=== PATIENT | female | born 1960 | race Hispanic/Latino ===

== ENCOUNTER → 2017-12-09 | Outpatient (CLI) | payer OTHER ==
[~2017-12-09] MED LIST: ASPI-1114 PO; B12/1TAB3 PO; CYCL10TA7 PO; DICY10CA13 PO; ESOM20CA60 PO; FA/M1TAB32 PO; FISH1CAP20 PO; GLUC100019 PO; PITA2TAB2 PO; SLOMG PO; SUCR1TAB2 PO; TRAM50TA4 PO; UBID100C45 PO
== END | disposition home or self-care (01) ==
LOC: RAH 09:21
PROVIDERS: ATTEND Internal Medicine Gastroenterology
DX: K21.0 Gastro-esophageal reflux disease with esophagitis (principal); K44.9 Diaphragmatic hernia without obstruction or gangrene; I10 Essential (primary) hypertension; E78.5 Hyperlipidemia, unspecified
CPT/HCPCS: 74240

== ENCOUNTER 2018-05-04 23:15 | Emergency (ER) | payer BC, OTHER ==
[2018-05-05] MEDS ORDERED: METOPROLOL TARTRATE 25 MG TAB ONE (00:28)
[2018-05-05 00:32] LABS: BASOPHILS % (AUTO) 0.4 % (0.0-5.0); EOSINOPHILS % (AUTO) 0.4 % (0.0-8.0); HEMATOCRIT 42.3 % (36-48); MEAN CORPUSCULAR HEMOGLOBIN 27.7 pg (27.0-33.0); MEAN CORPUSCULAR HGB CONC 33.6 g/dL (32.0-36.0); MEAN CORPUSCULAR VOLUME 82.4 fL (79-99); MONOCYTES % (AUTO) 9.7 % (3.0-13.0); NEUTROPHILS % (AUTO) 60.5 % (40.0-77.0); NUCLEATED RED BLOOD CELLS 0.1 % (0.0-0.19); PLATELET COUNT (AUTO) 259 K/uL (130-400); RED BLOOD CELL COUNT(AUTO) 5.14 MIL/uL (4.00-5.50); RED CELL DISTRIBUTION WIDTH 13.1 % (11.0-15.5)
[2018-05-05 00:43] LABS: CREATININE 0.7 mg/dL (0.5-1.5); POTASSIUM 3.7 mmol/L (3.5-5.1)
[2018-05-05 00:48] LABS: ALBUMIN 4.4 g/dL (3.5-5.0); BILIRUBIN,TOTAL 0.3 mg/dL (0.2-1.0); TOTAL PROTEIN, SERUM 8.6 g/dL (6.0-8.3)
[2018-05-05 02:26] LABS: CREATININE 0.6 mg/dL (0.5-1.5); POTASSIUM 3.7 mmol/L (3.5-5.1)
[2018-05-05 02:31] LABS: ALBUMIN 3.8 g/dL (3.5-5.0); BILIRUBIN,TOTAL 0.2 mg/dL (0.2-1.0); TOTAL PROTEIN, SERUM 7.3 g/dL (6.0-8.3)
== END 2018-05-05 03:46 | disposition home or self-care (01) ==
LOC: EDH 23:15
DX: I10 Essential (primary) hypertension (principal); R00.2 Palpitations; Z88.2 Allergy status to sulfonamides; Z88.1 Allergy status to other antibiotic agents; Z90.49 Acquired absence of other specified parts of digestive tract; Z90.710 Acquired absence of both cervix and uterus
CPT/HCPCS: 36415; 80053; 82550; 84484; 85025; 93005

== ENCOUNTER 2021-03-18 13:35 | Emergency (ER) | payer BC ==
[~2021-03-18] VITALS: Ht 157.5 cm; Wt 68.0 kg
[~2021-03-18 13:35] MED LIST changes: +CYCL-309 PO; -CYCL10TA7 PO
[2021-03-18] MEDS: CLONIDINE HCL 0.1 MG TABLET PO ONE ×2 (16:17→16:21)
[2021-03-18 16:21] VITALS: BP 159/86
== END 2021-03-18 16:29 | disposition home or self-care (01) ==
LOC: EDH 13:35
DX: U07.1 COVID-19 (principal); J06.9 Acute upper respiratory infection, unspecified; I10 Essential (primary) hypertension; E78.00 Pure hypercholesterolemia, unspecified; Z79.82 Long term (current) use of aspirin; Z79.899 Other long term (current) drug therapy; Z88.2 Allergy status to sulfonamides
CPT/HCPCS: 87635; 87804 ×2; 87880; 99283; C9803

== ENCOUNTER → 2023-07-06 | Outpatient (CLI) | payer BC ==
[~2023-07-06] MED LIST changes: -DICY10CA13 PO; +DICY10CA2 PO
[2023-07-06 12:17] LABS: BASOPHILS # (AUTO) 0.03 K/uL (0.00-0.20); BASOPHILS % (AUTO) 0.6 % (0.0-5.0); EOSINOPHILS # (AUTO) 0.05 K/uL (0.00-0.70); HEMATOCRIT 36.5 % (36-48); IMMATURE GRANULOCYTE ABSOLUTE 0.01 K/uL (0-1); LYMPHOCYTES % (AUTO) 39.8 % (21.0-51.0); MEAN CORPUSCULAR HEMOGLOBIN 27.7 pg (27.0-33.0); MEAN CORPUSCULAR HGB CONC 32.9 g/dL (32.0-36.0); MEAN CORPUSCULAR VOLUME 84.3 fL (79-99); MONOCYTES # (AUTO) 0.6 K/uL (0.1-1.0); MONOCYTES % (AUTO) 11.2 % (3.0-13.0); NEUTROPHILS # (AUTO) 2.3 K/uL (1.8-7.7); NEUTROPHILS % (AUTO) 47.2 % (40.0-77.0); PLATELET COUNT (AUTO) 224 K/uL (130-400); RED BLOOD CELL COUNT(AUTO) 4.33 MIL/uL (4.00-5.50); RED CELL DISTRIBUTION WIDTH 12.8 % (11.0-15.5); WHITE BLOOD COUNT (AUTO) 4.9 K/uL (4.8-10.8)
[2023-07-06 12:38] LABS: ALBUMIN 3.9 g/dL (3.5-5.0); BILIRUBIN,TOTAL 0.4 mg/dL (0.2-1.0); CREATININE 0.7 mg/dL (0.5-1.0); POTASSIUM 4.3 mmol/L (3.5-5.1); TOTAL PROTEIN, SERUM 7.8 g/dL (6.0-8.3)
== END | disposition home or self-care (01) ==
LOC: LAB 09:11
PROVIDERS: ATTEND Internal Medicine Cardiovascular Disease
DX: I10 Essential (primary) hypertension (principal)
CPT/HCPCS: 36415; 80053; 80061; 85025

== ENCOUNTER → 2024-02-10 | Outpatient (CLI) | payer BC ==
--- NOTE | 2024-02-10 15:13 | HMCIMG ---
LUMBAR SPINE 2-3VWS HISTORY: Back pain COMPARISON: 11/10/2012 FINDINGS: 3 images of lumbar spine were obtained. Grade 1 anterolisthesis is seen at the L5-S1 level with disc space narrowing. There are bilateral L5 pars defects. There is straightening of normal lordotic curvature which may be related to muscle spasm or positioning. No loss of vertebral height is seen. No fracture or dislocation is seen. Degenerative changes are seen. IMPRESSION: 1. No fracture is seen. DJD.
== END | disposition home or self-care (01) ==
LOC: RAH 14:25
PROVIDERS: ATTEND Internal Medicine
DX: M47.816 Spondylosis without myelopathy or radiculopathy, lumbar region (principal); M43.17 Spondylolisthesis, lumbosacral region; M48.07 Spinal stenosis, lumbosacral region; M54.41 Lumbago with sciatica, right side
CPT/HCPCS: 72100

== ENCOUNTER → 2024-07-20 | Outpatient (CLI) | payer BC ==
[~2024-07-20] MED LIST changes: +DICY-20 PO; -DICY10CA2 PO
--- NOTE | 2024-07-20 11:34 | HMCIMG ---
Exam Type: HIP UNILAT 2-3VW RIGHT Clinical Information: RIGHT HIP PAIN Comparison: None Findings: The bone examination is unremarkable. No fractures or dislocations are seen. No radiopaque foreign bodies are noted. Soft tissues are preserved. IMPRESSION: Normal examination.
--- NOTE | 2024-07-20 12:00 | HMCIMG ---
Exam Type: LUMBAR SPINE 2-3VWS Clinical Information: DORASLGIA SPECIFIED Comparison: None Findings: Exam of the lumbosacral spine demonstrates no evidence of acute fracture or subluxation. There are chronic bilateral pars interarticularis fractures at L5, with grade 1-2 anterolisthesis of L5 over S1. The alignment of the spine is normal otherwise. The disc spaces are intact. The facet joints show no degenerative changes Bone mineralization is normal. 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 Incidentally, suspicion of cholelithiasis and possible right nephrolithiasis.
== END | disposition home or self-care (01) ==
LOC: RAH 10:37
PROVIDERS: ATTEND Physician Assistant
DX: S32.058A Other fracture of fifth lumbar vertebra, initial encounter for closed fracture (principal); M43.17 Spondylolisthesis, lumbosacral region; M25.551 Pain in right hip; M54.9 Dorsalgia, unspecified; X58.XXXA Exposure to other specified factors, initial encounter; Y93.89 Activity, other specified; Y92.89 Other specified places as the place of occurrence of the external cause; Y99.8 Other external cause status
CPT/HCPCS: 72100; 73502

== ENCOUNTER 2024-10-03 14:44 | Emergency (ER) | payer BC ==
[~2024-10-03] VITALS: Ht 160 cm; Wt 73.9 kg
[2024-10-03 15:12] LABS: APPEARANCE,URINE CLEAR (CLEAR); GLUCOSE, URINE (UA) NEGATIVE (NEGATIVE); LEUKOCYTE ESTERASE ,URINE NEGATIVE Leu/uL (NEGATIVE); NITRATE,URINE NEGATIVE (NEGATIVE); OCCULT BLOOD,URINE NEGATIVE (NEGATIVE)
[2024-10-03 15:16] LABS: IMMATURE GRANULOCYTE ABSOLUTE 0.02 K/uL (0-1); NUCLEATED RED BLOOD CELLS 0.0 % (0.0-0.19); PLATELET COUNT (AUTO) 217 K/uL (130-400); RED BLOOD CELL COUNT(AUTO) 4.50 MIL/uL (4.00-5.50); RED CELL DISTRIBUTION WIDTH 13.1 % (11.0-15.5); WHITE BLOOD COUNT (AUTO) 6.2 K/uL (4.8-10.8)
[2024-10-03 15:24] LABS: SQUAMOUS EPITHELIAL CELL,UR RARE /HPF (0-2)
[2024-10-03 15:25] LABS: CREATININE 0.6 mg/dL (0.5-1.0); GLOMERULAR FILTR. RATE CALC 102.0 mL/min (>90); GLUCOSE,RANDOM 115.0 mg/dL (70-105); SODIUM SERUM 135.0 mmol/L (136-145); UREA NITROGEN, BLOOD 10.0 mg/dL (7-18)
[2024-10-03 15:29] LABS: ASPARTATE AMINOTRANSFERASE 22.0 U/L (10-37); TOTAL PROTEIN, SERUM 8.2 g/dL (6.0-8.3)
[2024-10-03] MEDS ORDERED: IOHEXOL-350 75 ML VIAL IV ONE (15:42)
--- NOTE | 2024-10-03 16:29 | HMCIMG ---
EXAM: CT Abdomen and Pelvis with Intravenous Contrast CLINICAL HISTORY: 63-year-old female with right upper quadrant epigastric pain TECHNIQUE: Axial computed tomography images of the abdomen and pelvis with intravenous contrast. Dose reduction technique was used including one or more of the following: automated exposure control, adjustment of mA and kV according to patient size, and/or iterative reconstruction. CONTRAST: Standard dose of IV contrast COMPARISON: None provided. FINDINGS: LUNG BASES: No basilar airspace consolidation or pleural effusion. LIVER: Unremarkable. GALLBLADDER AND BILE DUCTS: Unremarkable. No calcified stone. No ductal dilation. PANCREAS: Unremarkable. SPLEEN: Unremarkable. ADRENAL GLANDS: Unremarkable. KIDNEYS, URETERS, AND BLADDER: Symmetric excretion of contrast in both kidneys. No hydronephrosis or nephrolithiasis. No ureteral or bladder calculi. STOMACH AND BOWEL: No obstruction. No wall thickening. Left colon and sigmoid colon diverticulosis without diverticulitis. APPENDIX: No CT evidence for appendicitis. PERITONEUM: No free fluid. No free air. LYMPH NODES: No lymphadenopathy. REPRODUCTIVE: The uterus and adnexa are not visualized. VASCULATURE: Atherosclerotic aorta and iliac bifurcation. No aortic aneurysm. ABDOMINAL WALL AND SOFT TISSUES: Unremarkable. BONES: Bilateral spondylosis at L5 seen with mild anterolisthesis of L5 on S1. No fracture or suspicious osseous abnormality. IMPRESSION: 1. No acute findings. 2. Left colon and sigmoid colon diverticulosis without diverticulitis. /[place]
[2024-10-03 16:35] VITALS: BP 139/68; PULSE 83; RESP 16; TEMP 98.8; O2SAT 97
[2024-10-03] MEDS: 0.9%NACL 1000ML 1,000 ML IV SCH (16:42)
[2024-10-03] MEDS: MAG/ALUM/SIMETH 30 ML UDCUP PO SCH (17:38)
[2024-10-03] MEDS: LIDOCAINE HCL 2% VISCOUS 15 ML UDCUP PO SCH (17:38)
[2024-10-03] MEDS ORDERED: NITR100C PO (17:49)
--- NOTE | 2024-10-03 17:49 | ERN ---
General Chief Complaint: Abdominal Pain Stated Complaint: RUQ PAIN, DYSURIA Time Seen by MD: 14:47 Time Seen by Midlevel: 14:47 Source: patient History of Present Illness Initial Comments 63-year-old female presents to the emergency department due to right upper quadrant abdominal pain and dysuria onset four days. She denies any nausea, vomiting, diarrhea, fever or further associated symptoms. PMHx hypercholesterolemia, HTN, gastritis. Surgical history of hysterectomy and cholecystectomy Allergies: Coded Allergies: Sulfa (Sulfonamide Antibiotics) (Verified Allergy, Unknown, 10/05/17) ciprofloxacin (Unverified Allergy, Unknown, 10/03/24) Home Meds Active Scripts Nitrofurantoin Macrocrystal (Nitrofurantoin) 100 Mg Capsule, 1 CAP PO BID for 7 Days, #14 CAP 0 Refills Prov:NATIVIDAD ALAN 10/03/24 Reported Medications Glucosamine Sulfate 2Kcl (Glucosamine) 1,000 Mg Tablet, 1000 MG PO DAILY, TAB 10/05/17 Multivits-Min/FA/Lycopene/Lut (Complete Multi 50+ Tablet) 1 Each Tablet, 1 EACH PO DAILY, TAB 10/05/17 B12/Levomefolate Calcium/B-6 (Folbic Rf Tablet) 1 Each Tablet, 1 EACH PO DAILY, TAB 10/05/17 Dicyclomine HCl (Dicyclomine HCl) 10 Mg Capsule, 10 MG PO TID, CAP 10/05/17 Magnesium Chloride (Slow Mag) 64 Mg Ertab, 64 MG PO DAILY, TAB.EC 10/05/17 Tramadol Hcl (Tramadol HCl) 50 Mg Tablet, 50 MG PO TID PRN for PAIN LEVEL 6 TO 10, TAB 10/05/17 Cyclobenzaprine HCl (Cyclobenzaprine HCl) 10 Mg Tablet, 10 MG PO HS, TAB 10/05/17 Esomeprazole Magnesium (Nexium 24Hr) 20 Mg Capsule.dr, 20 MG PO AM, CAP 10/05/17 Sucralfate (Sucralfate) 1 Gm Tablet, 1 GM PO TID, TAB 10/05/17 [place]-3 Fatty Acids/Fish Oil (Fish Oil 1000 mg/Cap) 1,000 Mg/Cap Capsule, 1000 MG PO HS, CAP 10/05/17 Aspirin (George Chewable) 81 Mg Tab.chew, 81 MG PO HS, TAB.CHEW 10/05/17 Ubidecarenone (Co Q-10) 100 Mg Capsule, 100 MG PO HS, CAP 10/05/17 Pitavastatin Calcium (Livalo) 2 Mg Tablet, 2 MG PO HS, TAB 10/05/17 Past Medical History Past Medical History: High Cholesterol, Hypertension Past Surgical History: Hysterectomy, Cholecystectomy Surgical History Other: KNEE ROS Dictation Constitutional: Negative for fever,chills, and weight loss Eyes: Negative for injury, pain,redness, and discharge ENT: Negative for injury,pain or swelling Cardiovascular: Negative for chest pain, palpitations, and edema Respiratory: Negative for shortness of breath, cough, and wheezing, Abdomen/GI: Positive for abdominal pain Negative for nausea, vomiting, diarrhea, and constipation Back: Negative for injury and pain : Positive for dysuria Negative for bleeding or discharge MS/Extremity: Negative for injury and deformity Skin: Negative for rash, and discoloration Neuro: Negative for headache, weakness, numbness, tingling, and seizure Psych: Negative for suicide ideation, homicidal ideation, and hallucinations Physical Exam Physical Exam Dictation General: awake, alert, no acute distress Head/Face: Normocephalic, atraumatic Eyes: PERRL, EOMI, normal conjunctiva ENT: oral cavity clear, oral mucosa moist Neck: Supple, normal range of motion Cardiovascular: RRR, normal S1/S2 Respiratory: CTAB, no respiratory distress Abdomen: Soft, non-tender, non-distended, no guarding or rebound. Skin: Warm, dry, normal turgor, no rash MS/Extremity: Pulses equal, no cyanosis, neurovascular intact, FROM Neuro: COAx4, GCS 15, strength 5/5, CN 2-12 intact, normal cerebellar exam, normal gait Psych: Normal behavior, mood, and affect normal Results Laboratory and Microbiology Lab and Micro Result Laboratory Tests Test 10/03/24 15:00 10/03/24 15:09 Urine Color COLORLESS (YELLOW) Urine Appearance CLEAR (CLEAR) Urine pH 5.5 (5.0-8.0) Urine Specific [place] 1.002 (1.001-1.031) Urine Protein NEGATIVE mg/dL (NEGATIVE) Urine Glucose (UA) NEGATIVE mg/dL (NEGATIVE) Urine Ketones NEGATIVE mg/dL (NEGATIVE) Urine Occult Blood NEGATIVE (NEGATIVE) Urine Nitrate NEGATIVE (NEGATIVE) Urine Bilirubin NEGATIVE mg/dL (NEGATIVE) Urine Urobilinogen 0.2 mg/dL (0.2-1.0) Urine Leukocyte Esterase NEGATIVE [place]/uL Urine RBC 0-1 /HPF (0-1) Urine WBC 0-1 /HPF (0-1) Urine Squamous Epithelial Cells RARE /HPF (0-2) Urine Bacteria RARE /HPF (None Seen) White Blood Count 6.2 K/uL (4.8-10.8) Red Blood Count 4.50 MIL/uL (4.00-5.50) Hemoglobin 12.7 g/dL (12.0-16.0) Hematocrit 38.4 % (36-48) Mean Corpuscular Volume 85.3 fL (79-99) Mean Corpuscular Hemoglobin 28.2 pg (27.0-33.0) Mean Corpuscular Hemoglobin Concent 33.1 g/dL (32.0-36.0) Red Cell Distribution Width 13.1 % (11.0-15.5) Platelet Count 217 K/uL (130-400) Mean Platelet Volume 9.5 fL (7.5-10.5) Immature Granulocyte % (Auto) 0.3 % (0-1) Neutrophils (%) (Auto) 46.0 % (40.0-77.0) Lymphocytes (%) (Auto) 44.1 % (21.0-51.0) Monocytes (%) (Auto) 8.7 % (3.0-13.0) Eosinophils (%) (Auto) 0.6 % (0.0-8.0) Basophils (%) (Auto) 0.3 % (0.0-5.0) Neutrophils # (Auto) 2.9 K/uL (1.8-7.7) Lymphocytes # (Auto) 2.7 K/uL (1.0-4.8) Monocytes # (Auto) 0.5 K/uL (0.1-1.0) Eosinophils # (Auto) 0.04 K/uL (0.00-0.70) Basophils # (Auto) 0.02 K/uL (0.00-0.20) Absolute Immature Granulocyte (auto 0.02 K/uL (0-1) Nucleated Red Blood Cells 0.0 % (0.0-0.19) Sodium Level 135 mmol/L (136-145) L Potassium Level 3.4 mmol/L (3.5-5.1) L Chloride Level 100 mmol/L (101-111) L Carbon Dioxide Level 27 mmol/L (21-32) Blood Urea Nitrogen 10 mg/dL (7-18) Creatinine 0.6 mg/dL (0.5-1.0) Glomerular Filtration Rate Calc 102 mL/min (>90) Random Glucose 115 mg/dL (70-105) H Total Calcium 9.2 mg/dL (8.5-10.1) Total Bilirubin 0.3 mg/dL (0.2-1.0) Direct Bilirubin 0.1 mg/dL (0.0-0.3) Aspartate Amino Transf (AST/SGOT) 22 U/L (10-37) Alanine Aminotransferase (ALT/SGPT) 35 U/L (12-78) Alkaline Phosphatase 65 U/L (50-136) Troponin I High Sensitivity < 4 ng/L (4-50) L Total Protein 8.2 g/dL (6.0-8.3) Albumin 4.3 g/dL (3.5-5.0) Lipase 75 U/L (16-77) Labs Reviewed?: Yes EKG/XRAY/US/CT/MRI CT Scan Comment REASON: RUQ, epigastric pain ORDERING PHYSICIAN: NATIVIDAD ALAN PROCEDURE: ABD PEL W - CT ABDOMEN/PELVIS W/CONTRAST EXAM: CT Abdomen and Pelvis with Intravenous Contrast CLINICAL HISTORY: 63-year-old female with right upper quadrant epigastric pain TECHNIQUE: Axial computed tomography images of the abdomen and pelvis with intravenous contrast. Dose reduction technique was used including one or more of the following: automated exposure control, adjustment of mA and kV according to patient size, and/or iterative reconstruction. CONTRAST: Standard dose of IV contrast COMPARISON: None provided. FINDINGS: LUNG BASES: No basilar airspace consolidation or pleural effusion. LIVER: Unremarkable. GALLBLADDER AND BILE DUCTS: Unremarkable. No calcified stone. No ductal dilation. PANCREAS: Unremarkable. SPLEEN: Unremarkable. ADRENAL GLANDS: Unremarkable. KIDNEYS, URETERS, AND BLADDER: Symmetric excretion of contrast in both kidneys. No hydronephrosis or nephrolithiasis. No ureteral or bladder calculi. STOMACH AND BOWEL: No obstruction. No wall thickening. Left colon and sigmoid colon diverticulosis without diverticulitis. APPENDIX: No CT evidence for appendicitis. PERITONEUM: No free fluid. No free air. LYMPH NODES: No lymphadenopathy. REPRODUCTIVE: The uterus and adnexa are not visualized. VASCULATURE: Atherosclerotic aorta and iliac bifurcation. No aortic aneurysm. ABDOMINAL WALL AND SOFT TISSUES: Unremarkable. BONES: Bilateral spondylosis at L5 seen with mild anterolisthesis of L5 on S1. No fracture or suspicious osseous abnormality. IMPRESSION: 1. No acute findings. 2. Left colon and sigmoid colon diverticulosis without diverticulitis. /[place] DICTATED BY: BLUE FERRARA MD DATE: 10/03/241727 MDM MDM: Differential diagnosis: Gastritis, choledocholithiasis, UTI, dehydration Rationale: 63-year-old female presents to the emergency department due to right upper quadrant abdominal pain and dysuria onset four days. She denies any nausea, vomiting, diarrhea, fever or further associated symptoms. PMHx hypercholesterolemia, HTN, gastritis. Surgical history of hysterectomy and cholecystectomy. Labs obtained CBCs nonspecific, mild dehydration noted on chemistry hyponatremia 135, hypokalemia at 3.4, hypochloremia 100. Troponin within normal limits. UA negative for urinary tract infection. CT abdomen and pelvis obtained showing no acute findings, left colon sigmoid colon diverticulosis without any diverticulitis. Patient received GI cocktail and IV fluids in the ED. Prescribed antibiotics for outpatient treatment. Patient was educated on findings and diagnosis. Advised to follow up PCP. Return to the emergency department for any worsening symptoms. Patient verbalized understanding. Patient stable for discharge. There are no social concerns with this patient. I independently interpreted the test that were performed, results were reviewed by me and considered findings on radiology if ordered. Medical management and examination interpretation discussions were had by me with other qualified healthcare professionals as indicated for the patient's care. ED Course Orders Procedure Category Date Status Time Cbc With Differential LAB 10/03/24 Complete 14:54 Basic Metabolic Panel LAB 10/03/24 Complete 14:54 Urinalysis LAB 10/03/24 Complete W/Microscopic 14:54 Lipase LAB 10/03/24 Complete 14:54 Hepatic Function Panel LAB 10/03/24 Complete 14:54 Ct Abdomen/Pelvis CT 10/03/24 Resulted W/Contrast 15:31 Iohexol (Omnipaque) PHA 10/03/24 Complete 15:42 0.9%Nacl 1000ml (Ns PHA 10/03/24 Complete 1000ml) 17:00 Mag/Alum/Simeth 30ml PHA 10/03/24 Complete (Maalox Plus 30ml) 17:05 Pantoprazole 40mg Inj PHA 10/03/24 Complete (Protonix 40mg Inj 17:00 Lidocaine Hcl 2% PHA 10/03/24 Complete Viscous (Lidocaine Hcl 17:00 Troponin I High LAB 10/03/24 Complete Sensitivity 17:04 12 Lead Ekg Tracing- EKG 10/03/24 Complete Technical 17:04 Current Medications Medications (Trade) Dose Ordered Sig/Rose Route PRN Reason Start Time Stop Time Status Last Admin Dose Admin Al Hydroxide/Mg Hydroxide (MAALox PLUS 30ML) 30 ml ONCE PO 10/03/24 17:05 10/03/24 19:37 DC 10/03/24 17:38 Iohexol (Omnipaque) 75 ml STK-MED ONCE IV 10/03/24 15:42 10/03/24 15:47 DC Lidocaine HCl (Lidocaine HCl 2% Viscous) 10 ml ONCE PO 10/03/24 17:00 10/03/24 19:37 DC 10/03/24 17:38 Pantoprazole Sodium (PROTonix 40MG INJ) 40 mg ONCE IVP 10/03/24 17:00 10/03/24 19:37 DC 10/03/24 17:38 Sodium Chloride 1,000 ml @ 0 mls/hr ONCE IV 10/03/24 17:00 10/03/24 19:37 DC 10/03/24 16:42 Vital Signs Date Time Temp Pulse Resp B/P (MAP) Pulse Ox O2 Delivery O2 Flow Rate FiO2 10/03/24 16:35 98.8 83 16 139/68 97 Room Air* 0 21 10/03/24 15:04 98.8 88 16 170/81 98 Room Air* 0 21 10/03/24 14:46 98.1 88 16 162/86 97 Room Air 0 DX & DISP Disposition: Discharge Departure Impression: Primary Impression: Gastritis Additional Impression: Dysuria Condition: Stable Scripts Nitrofurantoin Macrocrystal (Nitrofurantoin) 100 Mg Capsule 1 CAP PO BID for 7 Days, #14 CAP 0 Refills Prov: NATIVIDAD ALAN 10/03/24 Additional Instructions: Discharge home. Rest. Follow up with primary care in 24 hours. Return to the ER for any acute changes or worsening symptoms. If any medications were prescribed take as directed. Okay to continue home medications unless otherwise discussed during your visit in the emergency room today. Patient was also advised to follow-up with primary care physician in 1 to 2 days for continued monitoring. Referrals: ALAN MOE MD (PCP) I performed the substantive portion of the visit. I have reviewed and personally made and approve the management plan that is documented in the notes by myself or the SUZY. I acknowledge full responsibility for the patient's management plan. NATIVIDAD ALAN Oct 03, 2024 17:49
--- NOTE | 2024-10-04 06:53 | EKG ---
[facility] Test Date: 2024-10-03 Test Time: 17:07:55 Pat Name: CIARA VELAZQUEZ Department: [facility] Room: Gender: F Apprise Counselor: [id number] : 1960 Requested By: NATIVIDAD ALAN Order Number: [id number] Reading MD: Jigna Cook Measurements Intervals [place] Rate: 63 P: -2 NE: 162 QRS: 31 QRSD: 90 T: 28 QT: 423 QTc: 434 Interpretive Statements Sinus rhythm Compared to ECG 05/05/2018 01:57:18 No significant changes Electronically Signed On 10-04-2024 12:15:29 CDT by Jigna Cook Please click the below link to view image of tracing.
== END 2024-10-03 19:06 | disposition home or self-care (01) ==
LOC: EDH 14:44
DX: K29.70 Gastritis, unspecified, without bleeding (principal); R30.0 Dysuria; E78.00 Pure hypercholesterolemia, unspecified; I10 Essential (primary) hypertension; Z79.82 Long term (current) use of aspirin; Z79.899 Other long term (current) drug therapy; Z88.1 Allergy status to other antibiotic agents; Z88.2 Allergy status to sulfonamides; Z90.49 Acquired absence of other specified parts of digestive tract; Z90.710 Acquired absence of both cervix and uterus
CPT/HCPCS: 99284; 74177; 96374; 96361; 80076; 84484; 80048; 83690; 85025; 81001; 36415; 93005; J7030; J2470; Q9967

== ENCOUNTER → 2024-10-11 | Outpatient (CLI) | payer BC ==
[~2024-10-11] MED LIST changes: +NITR100C PO
--- NOTE | 2024-10-12 18:10 | HMCIMG ---
EXAM: MR Lumbar Spine Without Intravenous Contrast. CLINICAL HISTORY: Spondylolisthesis. Lumbar region pain. TECHNIQUE: Magnetic resonance images of the lumbar spine in multiple planes. CONTRAST: None. COMPARISON: Radiograph lumbar spine dated 20 Jul 2024 FINDINGS: For this examination, spinal levels were labeled assuming five [id number], lumbar-type vertebrae, with the inferior labeled L5. No acute fracture. Normal lordotic curvature. Normal vertebral body height and marrow signal intensity. Multilevel disc desiccation from L2-L3, through L5-S1 level, with disc bulges and multilevel degenerative facet arthropathy. Bilateral pars defect at the L5-S1 level with grade 1 anterolisthesis of L5 over S1. Multilevel degenerative facet arthropathy and degenerative changes in the lumbar spine. Conus medullaris terminates at the T12-L1 level. No abnormal epidural masses. The surrounding soft tissues are unremarkable. Individual spinal levels are described as follows: T12-L1: No disc bulge or herniation. No neural foraminal, lateral recess, or spinal canal stenosis. L1-L2: No disc bulge or herniation. No neural foraminal, lateral recess, or spinal canal stenosis. L2-L3: Mild disc desiccation with broad-based circumferential 4 mm disc bulge with greater right-sided component. Small right paracentral annular tear. No significant lateral recess, neural foraminal narrowing, or nerve impingement. No evidence of spinal canal stenosis. L3-L4: Mild disc desiccation with broad-based circumferential 3 mm disc bulge. No neural foraminal, lateral recess, or spinal canal stenosis. L4-L5: Mild disc desiccation. Broad-based circumferential 4 mm disc bulge. Mild bilateral facet arthropathy is left more than right, and mild ligamentum flavum hypertrophy. No significant lateral recess, neural foraminal narrowing, or nerve impingement. No evidence of spinal canal stenosis. L5-S1: Bilateral pars defect at the L5-S1 level with grade 1 anterolisthesis of L5 over S1 with bilateral facet arthropathy. Moderate narrowing of the right neural foramina and mild narrowing of the left neural foramina. Abutment of bilateral exiting L5 nerve root and mild narrowing of the right lateral recess. Abutment of the right S1 nerve root. No spinal canal stenosis. IMPRESSION: Normal vertebral body height and marrow signal intensity. No evidence of acute fracture. Multilevel disc desiccation from L2-L3, through L5-S1 level, with disc bulges and multilevel degenerative facet arthropathy. Bilateral pars defect at the L5-S1 level with grade 1 anterolisthesis of L5 over S1. Multilevel degenerative facet arthropathy and degenerative changes in the lumbar spine, most prominent at the L5-S1 level. Compared to the prior radiograph, again identified is bilateral pars defect and grade 1 anterolisthesis of L5 over S1. /[place]
== END | disposition home or self-care (01) ==
LOC: RAH 14:30
PROVIDERS: ATTEND Internal Medicine
DX: M47.817 Spondylosis without myelopathy or radiculopathy, lumbosacral region (principal); M51.369 Other intervertebral disc degeneration, lumbar region without mention of lumbar back pain or lower extremity pain; M43.17 Spondylolisthesis, lumbosacral region; M48.07 Spinal stenosis, lumbosacral region; M40.56 Lordosis, unspecified, lumbar region; M53.87 Other specified dorsopathies, lumbosacral region
CPT/HCPCS: 72148

== ENCOUNTER → 2024-12-06 | Outpatient (CLI) | payer BC ==
--- NOTE | 2024-12-06 20:04 | HMCIMG ---
EXAM: XR Lumbar spine, 4 Views total. CLINICAL HISTORY: 63-year-old female with spondylolysis. COMPARISON: None provided. FINDINGS: BONES: No acute fracture or aggressive appearing osseous lesion. Spondylolysis at L5 is seen with moderate anterolisthesis of L5 on S1. DISCS/DEGENERATIVE CHANGES: The disc spaces are preserved. SOFT TISSUES: No prevertebral soft tissue swelling evident in the lumbar spine. The visualized lungs appear clear. IMPRESSION: 1. Spondylolysis at L5 with moderate anterolisthesis of L5 on S1. /[place]
== END | disposition home or self-care (01) ==
LOC: RAH 15:12
PROVIDERS: ATTEND Neurological Surgery
DX: M47.816 Spondylosis without myelopathy or radiculopathy, lumbar region (principal); M43.17 Spondylolisthesis, lumbosacral region
CPT/HCPCS: 72114